=== PATIENT | female | born 1995 | race African-American/Black ===

== ENCOUNTER 2016-12-03 00:54 | Emergency (ER) | payer SELFPAY ==
[~2016-12-03] VITALS: Ht 162.6 cm; Wt 107.3 kg
[2016-12-03 00:57] VITALS: BP 135/83; PULSE 69; RESP 18; TEMP 97.8; O2SAT 100
--- NOTE | 2016-12-03 01:19 | PD ---
HPI Chief Complaint: Abdominal Pain Time Seen by Provider: 01:11 Travel History International Travel<30 days: No Contact w/Intl Traveler<30days: No Traveled to known affect area: No History of Present Illness HPI 21-year-old female here for evaluation of right lower quadrant abdominal pain. The patient reports that she has had pain in this area intermittently since she has been 18 years old. At that time she was told that she has ovarian cysts. She states that over the last couple of days the pain has worsened, described as burning/ache, worse with movement and palpation, is moderate in severity. She reports decreased appetite today. No fevers or chills. No nausea or vomiting. No abnormal vaginal discharge. She is sexually active with one partner and believes she is in a monogamous relationship. No history of abdominal surgeries. No urinary symptoms. LMP was 3 weeks ago. [facility] Social History Tobacco Use: No Allergies-Medications (Allergen,Severity, Reaction): Coded Allergies: amoxicillin (Verified Allergy, Severe, HIVES, 12/03/16) Reported Meds & Prescriptions Reported Meds & Active Scripts Active Reported Naproxen 250 Mg Tab 250 Mg PO BID PRN [ Control Pills] 1 Tab PO DAILY Review of Systems Except as stated in HPI: all other systems reviewed are Neg Physical Exam Narrative GENERAL: Well-developed, well-nourished, comfortable, no apparent distress. SKIN: Focused skin assessment warm/dry. HEAD: Atraumatic. Normocephalic. EYES: Pupils equal and round. No scleral icterus. No injection or drainage. ENT: Mucous membranes pink and moist. NECK: Trachea midline. No JVD. CARDIOVASCULAR: Regular rate and rhythm. No murmur appreciated. RESPIRATORY: No accessory muscle use. Clear to auscultation. Breath sounds equal bilaterally. GASTROINTESTINAL: Abdomen soft, nondistended. Mild right lower quadrant tenderness without peritoneal signs. Rest of abdomen is soft and nontender. Normal bowel sounds. UTILITY WORKER DRIVER: Exam performed in the presence of female nurse. Normal external genitalia. Normal cervix. Scant/physiologic vaginal discharge. No CMT. No adnexal masses or tenderness. MUSCULOSKELETAL: No obvious deformities. No clubbing. No cyanosis. No edema. NEUROLOGICAL: Awake and alert. No obvious cranial nerve deficits. Motor grossly within normal limits. Normal speech. PSYCHIATRIC: Appropriate mood and affect; insight and judgment normal. Data Data Last Documented VS Vital Signs Date Time Temp Pulse Resp B/P (MAP) Pulse Ox O2 Delivery O2 Flow Rate FiO2 12/03/16 03:30 12/03/16 03:20 58 14 100 Room Air 12/03/16 00:57 97.8 Orders Orders Complete Blood Count With Diff (12/03/16 01:15) Comprehensive Metabolic Panel (12/03/16 01:15) Urinalysis - C+S If Indicated (12/03/16 01:15) Ct Abd/Pel W Iv Contrast(Rout) (12/03/16 01:15) Iv Access Insert/Monitor (12/03/16 01:15) Ecg Monitoring (12/03/16 01:15) Oximetry (12/03/16 01:15) Ed Urine Pregnancytest Poc (12/03/16 01:15) Gc And Chlamydia Pcr (12/03/16 01:15) Wet Prep Profile (12/03/16 01:15) Iohexol 350 Inj (Omnipaque 350 Inj) (12/03/16 02:41) Ed Discharge Order (12/03/16 03:20) Labs Laboratory Tests Test 12/03/16 01:20 12/03/16 01:35 12/03/16 01:58 Urine Color DESTINEY Urine Turbidity CLEAR Urine pH 7.0 Urine Specific [place] GREATER THAN 1.035 Urine Protein TRACE mg/dL Urine Glucose (UA) NEG mg/dL Urine Ketones TRACE mg/dL Urine Occult Blood NEG Urine Nitrite NEG Urine Bilirubin NEG Urine Leukocyte Esterase NEG Urine Squamous Epithelial Cells > 8 /hpf Urine Amorphous Sediment SMALL Urine Bacteria OCC /hpf Urine Mucus MOD /lpf Microscopic Urinalysis Comment CULT NOT INDICATED White Blood Count 7.0 TH/MM3 Red Blood Count 4.39 MIL/MM3 Hemoglobin 12.0 GM/DL Hematocrit 36.5 % Mean Corpuscular Volume 83.3 FL Mean Corpuscular Hemoglobin 27.3 PG Mean Corpuscular Hemoglobin Concent 32.8 % Red Cell Distribution Width 12.8 % Platelet Count 272 TH/MM3 Mean Platelet Volume 7.6 FL Neutrophils (%) (Auto) 53.4 % Lymphocytes (%) (Auto) 37.1 % Monocytes (%) (Auto) 7.2 % Eosinophils (%) (Auto) 0.9 % Basophils (%) (Auto) 1.4 % Neutrophils # (Auto) 3.7 TH/MM3 Lymphocytes # (Auto) 2.6 TH/MM3 Monocytes # (Auto) 0.5 TH/MM3 Eosinophils # (Auto) 0.1 TH/MM3 Basophils # (Auto) 0.1 TH/MM3 CBC Comment DIFF FINAL Differential Comment Blood Urea Nitrogen 7 MG/DL Creatinine 0.75 MG/DL Random Glucose 83 MG/DL Total Protein 7.3 GM/DL Albumin 3.6 GM/DL Calcium Level 8.3 MG/DL Alkaline Phosphatase 82 U/L Aspartate Amino Transf (AST/SGOT) 28 U/L Alanine Aminotransferase (ALT/SGPT) 30 U/L Total Bilirubin 0.3 MG/DL Sodium Level 139 MEQ/L Potassium Level 4.0 MEQ/L Chloride Level 107 MEQ/L Carbon Dioxide Level 25.8 MEQ/L Anion Gap 6 MEQ/L Estimat Glomerular Filtration Rate 118 ML/MIN Clue Cells (Wet Prep) NONE SEEN Vaginal Trichomonas (Wet Prep) NONE SEEN Vaginal Yeast (Wet Prep) NONE SEEN MDM Medical Decision Making Medical Screen Exam Complete: Yes Emergency Medical Condition: Yes Differential Diagnosis Ovarian cyst, , ectopic , ovarian torsion less likely, appendicitis, UTI, cystitis, PID, TOA Narrative Course Vital signs are within normal limits. CBC is unremarkable. CMP is unremarkable. UA shows greater than 8 epithelial cells, occasional bacteria. This is likely a contaminant. Wet prep is negative for clue cells, negative for yeast, negative for Trichomonas. CT abdomen pelvis: Normal appendix. Trace pelvic free fluid likely physiologic. Patient's physical exam is not consistent with PID. She likely ruptured an ovarian cyst. She is resting comfortably and was made aware of all findings per she is stable for discharge home with outpatient follow-up. I will give her the information to [facility]. She was informed on when to return to the emergency department. She verbalizes understanding and agreement with plan. Diagnosis Primary Impression: Pelvic pain in female Referrals: [facility] 3 days Primary Care Physician 3 days Additional Instructions: Follow-up with a primary care physician this week. Follow-up with a project controller this week. Return to the emergency department for worsening symptoms or any other concerns. Disposition: DISCHARGE HOME Condition: Stable Tk Montalvo MD Dec 03, 2016 01:19
[2016-12-03 01:30] VITALS: RESP 14; O2SAT 100
[2016-12-03 01:35] VITALS: BP 130/76; PULSE 67; RESP 14; O2SAT 100
[2016-12-03] MEDS ORDERED: NAPR250T PO (01:48)
[2016-12-03] MEDS ORDERED: BIRTH CONTROL PILLS PO (01:48)
[2016-12-03 01:51] LABS: AUTOMATED NEUTROPHIL # 3.7 TH/MM3 (1.8-7.7); BASOPHIL # 0.1 TH/MM3 (0-0.2); BASOPHIL % 1.4 % (0.0-2.0); EOSINOPHIL # 0.1 TH/MM3 (0-0.4); EOSINOPHIL % 0.9 % (0.0-4.0); HEMATOCRIT 36.5 % (35.0-46.0); LYMPH % 37.1 % (9.0-44.0); LYMPHOCYTE # 2.6 TH/MM3 (1.0-4.8); MEAN CELL VOLUME 83.3 FL (80.0-100.0); MEAN CORPUSCULAR HEMOGLOBIN 27.3 PG (27.0-34.0); MEAN CORPUSCULAR HGB CONC 32.8 % (32.0-36.0); MEAN PLATELET VOLUME 7.6 FL (7.0-11.0); MONO % 7.2 % (0.0-8.0); MONOCYTE # 0.5 TH/MM3 (0-0.9); NEUT % 53.4 % (16.0-70.0); PLATELET COUNT 272 TH/MM3 (150-450); RED BLOOD COUNT 4.39 MIL/MM3 (4.00-5.30); RED CELL DISTRIBUTION WIDTH 12.8 % (11.6-17.2)
[2016-12-03 01:51] LABS: BILIRUBIN, URINE NEG (NEG); BLOOD, URINE NEG (NEG); GLUCOSE,URINE NEG (NEG); KETONE, URINE TRACE mg/dL (NEG); NITRITE,URINE NEG (NEG); URINE LEUKOCYTE ESTERASE NEG (NEG)
[2016-12-03 02:03] LABS: URINE COLOR AMBER (YELLW/STRAW)
[2016-12-03 02:04] LABS: BACTERIA, URINE OCC /hpf; MUCUS URINE MOD /lpf (OCC); SQUAMOUS EPITHELIAL CELL URINE > 8 /hpf (0-5)
[2016-12-03 02:05] LABS: CHLORIDE 107 MEQ/L (98-107); SODIUM (NA) 139 MEQ/L (136-145)
[2016-12-03 02:06] LABS: AMORPHOUS SEDIMENT, URINE SMALL
[2016-12-03 02:08] LABS: CALCIUM 8.3 MG/DL (8.5-10.1)
[2016-12-03 02:09] LABS: ALBUMIN 3.6 GM/DL (3.4-5.0); BICARBONATE 25.8 MEQ/L (21.0-32.0); BLOOD UREA NITROGEN 7 MG/DL (7-18); GLUCOSE,RANDOM 83 MG/DL (74-106)
[2016-12-03 02:11] LABS: ALT (GPT) 30 U/L (10-53)
[2016-12-03 02:12] LABS: AST (GOT) 28 U/L (15-37); CREATININE 0.75 MG/DL (0.50-1.00); GLOMERULAR FILTRATION RATE 118 ML/MIN (>89)
[2016-12-03 02:13] LABS: TOTAL BILIRUBIN ADULT 0.3 MG/DL (0.2-1.0); TOTAL PROTEIN 7.3 GM/DL (6.4-8.2)
[2016-12-03 02:15] LABS: ALKALINE PHOSPHATASE 82 U/L (45-117)
[2016-12-03] MEDS ORDERED: IOHEXOL 350 MG/ML 10 ML VIAL (for RAD DIAG) IVCONTRAST ONE (02:41)
--- NOTE | 2016-12-03 03:05 | RADRPT ---
EXAM DATE/TIME: 12/03/2016 02:16 [place] COMPARISON: No previous studies available for comparison. INDICATIONS : Right lower quadrant pain. IV CONTRAST: 75 cc Omnipaque 350 (iohexol) IV ORAL CONTRAST: No oral contrast ingested. RADIATION DOSE: 19.04 CTDIvol (mGy) MEDICAL HISTORY : None SURGICAL HISTORY : None. ENCOUNTER: Initial ACUITY: 2 days PAIN SCALE: 8/10 LOCATION: Right lower quadrant TECHNIQUE: Volumetric scanning of the abdomen and pelvis was performed. Using automated exposure control and ad justment of the mA and/or kV according to patient size, radiation dose was kept as low as reasonably achievable to obtain optimal diagnostic quality images. DICOM format image data is available electro nically for review and comparison. FINDINGS: LOWER LUNGS: The visualized lower lungs are clear. LIVER: Homogeneous density without lesion. There is no dilation of the biliary tree. No calcified gallston es. SPLEEN: Normal size without lesion. PANCREAS: Within normal limits. KIDNEYS: Normal in size and shape. There is no mass, stone or hydronephrosis. ADRENAL GLANDS: Within normal limits. VASCULAR: There is no aortic aneurysm. BOWEL/MESENTERY: The stomach, small bowel, and colon demonstrate no acute abnormality. There is no free intraperitone al air or fluid. The normal appendix. ABDOMINAL WALL: Within normal limits. RETROPERITONEUM: There is no lymphadenopathy. BLADDER: No wall thickening or mass. REPRODUCTIVE: Trace pelvic fluid fluid.. INGUINAL: There is no lymphadenopathy or hernia. MUSCULOSKELETAL: Within normal limits for patient age. CONCLUSION: 1. Normal appendix. 2. Trace pelvic free fluid likely physiologic. Holger Fang MD on December 03, 2016 at 3:01 Board Certified Radiologist. This report was verified electronically.
[2016-12-03 03:20] VITALS: BP 129/61; PULSE 58; RESP 14; O2SAT 100
== END 2016-12-03 03:37 | disposition home or self-care (01) ==
LOC: PHED 00:54
DX: R10.2 Pelvic and perineal pain (principal)
CPT/HCPCS: 74177; 80053; 81001; 84703; 85025; 87210; 87491; 87591; 99285; Q9967

== ENCOUNTER 2017-06-03 12:23 | Emergency (ER) | payer BC, MEDICAID ==
[~2017-06-03] VITALS: Ht 162.6 cm; Wt 112.0 kg
[~2017-06-03 12:23] MED LIST: BIRTH CONTROL PILLS PO; NAPR250T4 PO
[2017-06-03 12:42] VITALS: BP 124/67; PULSE 75; RESP 16; TEMP 98.7; O2SAT 100
--- NOTE | 2017-06-03 13:54 | PD ---
HPI Chief Complaint: Retail Planner Problem/Complaint Time Seen by Provider: 13:03 Travel History International Travel<30 days: No Contact w/Intl Traveler<30days: No Traveled to known affect area: No History of Present Illness HPI This is a 21 year old female who presents to the emergency department with vaginal swelling, constant, moderate, increasing over the past 2 days with no associated vaginal discharge, fevers, chills or abdominal pain. She's had one sexual partner in the past 6 months. PFSH Past Medical History Asthma: Yes (DOES NOT REQUIRE MEDICATION) Immunizations Current: Yes ?: Not LMP: 2 WEEK AGO : 0 Ovarian Cysts: Yes Past Surgical History Tonsillectomy: Yes (AND ADNOIDS) Social History Alcohol Use: Yes (OCC) Tobacco Use: No Substance Use: No Allergies-Medications (Allergen,Severity, Reaction): Coded Allergies: amoxicillin (Verified Allergy, Severe, HIVES, 06/03/17) Reported Meds & Prescriptions Reported Meds & Active Scripts Active Reported Naproxen 250 Mg Tab 250 Mg PO BID PRN Review of Systems Except as stated in HPI: all other systems reviewed are Neg Physical Exam Narrative GENERAL: Well-nourished, well-developed patient. SKIN: Warm and dry. HEAD: Normocephalic. EYES: No scleral icterus. No injection or drainage. NECK: Supple, trachea midline. CARDIOVASCULAR: Regular rate and rhythm without murmurs. RESPIRATORY: Breath sounds equal bilaterally. No accessory muscle use. GASTROINTESTINAL: Abdomen soft, non-tender, nondistended. : White vaginal discharge in the vault with a fishy odor, no cervical motion tenderness or adnexal tenderness. MUSCULOSKELETAL: No cyanosis, or edema. Data Data Last Documented VS Vital Signs Date Time Temp Pulse Resp B/P (MAP) Pulse Ox O2 Delivery O2 Flow Rate FiO2 06/03/17 12:42 98.7 75 16 124/67 (86) 100 Orders Orders Wet Prep Profile (06/03/17 13:16) Gc And Chlamydia Pcr (06/03/17 13:16) Labs Laboratory Tests Test 06/03/17 13:20 Clue Cells (Wet Prep) NONE SEEN Vaginal Trichomonas (Wet Prep) NONE SEEN Vaginal Yeast (Wet Prep) NONE SEEN MDM Medical Decision Making Medical Screen Exam Complete: Yes Emergency Medical Condition: Yes Differential Diagnosis Cervicitis, yeast infection, bacterial vaginosis, pelvic inflammatory disease Narrative Course This is a 21-year-old female who presents to the emergency department with vaginal swelling and irritation. On exam she has an exam consistent with possible bacterial vaginosis. Wet prep was negative. Given my clinical suspicion I'm inclined to treat her with Flagyl. I also provided her with empiric treatment for cervicitis and the case that this is an STD. Otherwise patient is nontoxic appearing and has no signs of pelvic inflammatory disease. I think she can be discharged home Diagnosis Primary Impression: Vaginal irritation Patient Instructions: General Instructions Med/Other Pt SpecificInfo: Prescription(s) given Scripts Metronidazole (Flagyl) 500 Mg Tab 500 MG PO BID for Infection for 7 Days, #14 TAB 0 Refills Prov: Rayne Galeano MD 06/03/17 Disposition: 01 DISCHARGE HOME Condition: Stable Rayne Galeano MD Jun 03, 2017 13:54
[2017-06-03] MEDS ORDERED: METR-1 PO (14:25)
[2017-06-03] MEDS ORDERED: AZITHROMYCIN PWD FOR SUSP 1 GM PACKET PO ONE (14:30)
[2017-06-03] MEDS ORDERED: LIDOCAINE HCL 1% 50 ML VIAL IM ONE (14:30)
[2017-06-03] MEDS ORDERED: cefTRIAXone 250 MG VIAL IM ONE (14:30)
[2017-06-03] MEDS ORDERED: LIDOCAINE HCL 1% PF 30 ML VIAL ONE (14:41)
== END 2017-06-03 15:15 | disposition home or self-care (01) ==
LOC: PHED 12:23
DX: N89.8 Other specified noninflammatory disorders of vagina (principal)
CPT/HCPCS: 87210; 87491; 87591; 96372; 99283; J0696

== ENCOUNTER 2017-06-19 18:09 | Emergency (ER) | payer BC ==
[~2017-06-19] VITALS: Ht 162.6 cm; Wt 109.3 kg
[~2017-06-19 18:09] MED LIST changes: -BIRTH CONTROL PILLS PO; +METR-1 PO
[2017-06-19 18:18] VITALS: BP 146/70; PULSE 85; RESP 18; TEMP 98.9; O2SAT 100
--- NOTE | 2017-06-19 19:50 | PD ---
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 She complains of discharge and vaginal area irritation. She denies any fevers or other symptoms. She states it feels the same as last time. Modifying Factors: None Associated Signs & Symptoms: Vaginal area irritation and discharge Risk Factors: Recent bacterial vaginosis, unprotected sex PFSH Past Medical History Asthma: Yes (DOES NOT REQUIRE MEDICATION) Immunizations Current: Yes ?: Not : 0 Ovarian Cysts: Yes Past Surgical History Tonsillectomy: Yes (AND ADNOIDS) Social History Alcohol Use: Yes (OCC) Tobacco Use: No Substance Use: No Allergies-Medications (Allergen,Severity, Reaction): Coded Allergies: amoxicillin (Verified Allergy, Severe, HIVES, 06/19/17) Reported Meds & Prescriptions Reported Meds & Active Scripts Active Flagyl (Metronidazole) 500 Mg Tab 500 Mg PO BID 7 Days Reported Naproxen 250 Mg Tab 250 Mg PO BID PRN Review of Systems Except as stated in HPI: all other systems reviewed are Neg Physical Exam Narrative GENERAL: Well-developed young -[place] female patient currently in mild distress. Awake and oriented 3. SKIN: Focused skin assessment warm/dry. HEAD: Atraumatic. Normocephalic. EYES: Pupils equal and round. No scleral icterus. No injection or drainage. ENT: No nasal bleeding or discharge. Mucous membranes pink and moist. NECK: Trachea midline. No JVD. CARDIOVASCULAR: Regular rate and rhythm. No murmur appreciated. RESPIRATORY: No accessory muscle use. Clear to auscultation. Breath sounds equal bilaterally. GASTROINTESTINAL: Abdomen soft, non-tender, nondistended. Hepatic and splenic margins not palpable. GENITOURINARY: Normal external genitalia without lesions or erythema. Vaginal vault without blood or drainage. Cervical os was closed without drainage. No cervical motion tenderness. Uterus nontender and nonenlarged. Bilateral adnexa nontender without masses. MUSCULOSKELETAL: No obvious deformities. No clubbing. No cyanosis. No edema. NEUROLOGICAL: Awake and alert. No obvious cranial nerve deficits. Motor grossly within normal limits. Normal speech. PSYCHIATRIC: Appropriate mood and affect; insight and judgment normal. Data Data Last Documented VS Vital Signs Date Time Temp Pulse Resp B/P (MAP) Pulse Ox O2 Delivery O2 Flow Rate FiO2 06/19/17 18:18 98.9 85 18 146/70 (95) 100 Orders Orders Urinalysis - C+S If Indicated (06/19/17:23) Ed Urine Pregnancytest Poc (06/19/17:23) Gc And Chlamydia Pcr (06/19/17 20:04) Wet Prep Profile (06/19/17 20:) Labs Laboratory Tests Test 06/19/17 20:02 06/19/17 20:04 Urine Color YELLOW Urine Turbidity [place] CLOUDY Urine pH 6.0 Urine Specific [place] GREATER/EQUAL 1.030 Urine Protein TRACE mg/dL Urine Glucose (UA) NEG mg/dL Urine Ketones TRACE mg/dL Urine Occult Blood NEG Urine Nitrite NEG Urine Bilirubin NEG Urine Urobilinogen 0.2 MG/DL Urine Leukocyte Esterase TRACE Urine RBC 0-3 /hpf Urine WBC 6-8 /hpf Urine Squamous Epithelial Cells > 8 /hpf Urine Bacteria FEW /hpf Microscopic Urinalysis Comment CULT NOT INDICATED Clue Cells (Wet Prep) NONE SEEN Vaginal Trichomonas (Wet Prep) NONE SEEN Vaginal Yeast (Wet Prep) NONE SEEN MDM Medical Decision Making Medical Screen Exam Complete: Yes Emergency Medical Condition: Yes Medical Record Reviewed: Yes Interpretation(s) Laboratory Tests Test 06/19/17 20:02 06/19/17 20:04 Urine Ketones TRACE mg/dL (NEG) Urine Leukocyte Esterase TRACE (NEG) Urine WBC 6-8 /hpf (0-5) Urine Squamous Epithelial Cells > 8 /hpf (0-5) Urine Bacteria FEW /hpf (NONE) Differential Diagnosis Bacterial vaginosis versus cervicitis versus candidal vaginitis Narrative Course Pelvic exam was fairly unremarkable. Wet prep is negative. UA did show some UTI. Considering her symptoms are similar to the last time, my plan would be to treat her UTI as well as BV. Her GC cultures have been negative in the past and I suspect will be negative this time. My plan would be to release her at this point with follow-up to [employer] if symptoms do not resolve. Return for any worsening in symptoms as necessary. She is not . The plan was discussed with her and she states understanding. Diagnosis Primary Impression: UTI (urinary tract infection) Additional Impression: Vaginitis Med/Other Pt SpecificInfo: Prescription(s) given Scripts Metronidazole (Flagyl) 500 Mg Tab 500 MG PO TID for Infection for 7 Days, TAB 0 Refills Prov: Geni Phillips MD 06/19/17 Ciprofloxacin (Cipro) 500 Mg Tab 500 MG PO BID for Infection for 3 Days, #6 TAB 0 Refills Prov: Geni Phillips MD 06/19/17 Disposition: 01 DISCHARGE HOME Condition: Stable Geni Phillips MD June 19, 2017 19:50
[2017-06-19 20:09] LABS: BILIRUBIN, URINE NEG (NEG); BLOOD, URINE NEG (NEG); GLUCOSE,URINE NEG (NEG); KETONE, URINE TRACE mg/dL (NEG); NITRITE,URINE NEG (NEG); URINE COLOR YELLOW (YELLW/STRAW); URINE LEUKOCYTE ESTERASE TRACE (NEG)
[2017-06-19 20:14] LABS: BACTERIA, URINE FEW /hpf; RBC, URINE 0-3 /hpf (0-3); SQUAMOUS EPITHELIAL CELL URINE > 8 /hpf (0-5)
[2017-06-19] MEDS ORDERED: METR-1 PO (21:07)
[2017-06-19] MEDS ORDERED: CIPR-9 PO (21:07)
[2017-06-19 22:11] VITALS: BP 138/75; TEMP 98.8
== END 2017-06-19 22:12 | disposition home or self-care (01) ==
LOC: PHED 18:09
DX: N39.0 Urinary tract infection, site not specified (principal); N76.0 Acute vaginitis; J45.909 Unspecified asthma, uncomplicated; Z88.0 Allergy status to penicillin; Z79.899 Other long term (current) drug therapy
CPT/HCPCS: 81001; 84703; 87210; 87491; 87591; 99284

== ENCOUNTER 2017-07-02 19:58 | Observation (INO) | payer BC ==
[~2017-07-02] VITALS: Ht 162.6 cm; Wt 111.0 kg
[~2017-07-02 19:58] MED LIST changes: +CIPR-9 PO
[2017-07-02 20:04] VITALS: BP 119/62; PULSE 123; RESP 18; TEMP 99; O2SAT 97
[2017-07-02] MEDS ORDERED: SODIUM CHLOR 0.9% 1000 ML INJ 1,000 ML IV SCH (20:25)
--- NOTE | 2017-07-02 20:28 | PD ---
HPI Chief Complaint: Abdominal Pain Time Seen by Provider: 20:21 Travel History International Travel<30 days: No Contact w/Intl Traveler<30days: No Traveled to known affect area: No History of Present Illness HPI 21-year-old female here for evaluation of multiple complaints. The patient reports diarrhea, nausea, abdominal pain/cramping, headaches, generalized malaise, generalized weakness. Symptoms started yesterday. She denies fevers or chills. She states that she feels nauseous but has not vomited. She was seen in the emergency department 2 weeks ago and was diagnosed with a UTI which was treated with Cipro and the patient was also given Flagyl for BV type symptoms. No history of abdominal surgeries. She does have history of right ovarian cyst. Abdominal pain is lower, left greater than right, cramping, moderate, worse with movements. Patient reports that her urinary symptoms have improved and she no longer has vaginal discharge since her visit on 06/19/17. PFSH Past Medical History Asthma: Yes (DOES NOT REQUIRE MEDICATION) Immunizations Current: Yes ?: Not LMP: 06/19/17 : 0 Ovarian Cysts: Yes Past Surgical History Tonsillectomy: Yes (AND ADNOIDS) Social History Alcohol Use: Yes (OCC) Tobacco Use: No Substance Use: No Allergies-Medications (Allergen,Severity, Reaction): Coded Allergies: amoxicillin (Verified Allergy, Severe, HIVES, 07/02/17) Reported Meds & Prescriptions Reported Meds & Active Scripts Active Flagyl (Metronidazole) 500 Mg Tab 500 Mg PO TID 7 Days Reported Naproxen 250 Mg Tab 250 Mg PO BID PRN Review of Systems Except as stated in HPI: all other systems reviewed are Neg Physical Exam Narrative GENERAL: Well-developed, well-nourished, overweight, comfortable, no apparent distress. SKIN: Focused skin assessment warm/dry. HEAD: Atraumatic. Normocephalic. EYES: Pupils equal and round. No scleral icterus. No injection or drainage. ENT: Mucous membranes pink and moist. NECK: Trachea midline. No JVD. CARDIOVASCULAR: Regular rate and rhythm. No murmur appreciated. RESPIRATORY: No accessory muscle use. Clear to auscultation. Breath sounds equal bilaterally. GASTROINTESTINAL: Abdomen soft, non-tender, nondistended. FILER FINISH: Exam performed in the presence of a female nurse. Normal external genitalia. Scant blood in the vaginal vault coming from the cervical office. No intravaginal lacerations. No foul-smelling vaginal discharge. MUSCULOSKELETAL: No obvious deformities. No clubbing. No cyanosis. No edema. NEUROLOGICAL: Awake and alert. No obvious cranial nerve deficits. Motor grossly within normal limits. Normal speech. PSYCHIATRIC: Appropriate mood and affect; insight and judgment normal. Data Data Last Documented VS Vital Signs Date Time Temp Pulse Resp B/P (MAP) Pulse Ox O2 Delivery O2 Flow Rate FiO2 07/02/17 21:53 106 20 136/66 (89) 100 07/02/17 20:04 99.0 Orders Orders Complete Blood Count With Diff (07/02/17 20:25) Comprehensive Metabolic Panel (07/02/17 20:25) Urinalysis - C+S If Indicated (07/02/17 20:25) Iv Access Insert/Monitor (07/02/17 20:25) Ecg Monitoring (07/02/17 20:25) Oximetry (07/02/17 20:25) Sodium Chlor 0.9% 1000 Ml Inj (Ns 1000 M (07/02/17 20:25) Sodium Chloride 0.9% Flush (Ns Flush) (07/02/17 20:30) Ed Urine Pregnancytest Poc (07/02/17 20:25) Influenzae A/B Antigen (07/02/17 20:25) Ondansetron Odt (Zofran Odt) (07/02/17 20:30) Ct Abd/Pel W Iv Contrast(Rout) (07/02/17 21:20) Gc And Chlamydia Pcr (07/02/17 21:20) Wet Prep Profile (07/02/17 21:20) Sodium Chlor 0.9% 1000 Ml Inj (Ns 1000 M (07/02/17 22:45) Acetaminophen (Tylenol) (07/02/17 22:45) Labs Laboratory Tests Test 07/02/17 20:20 07/02/17 21:00 07/02/17 22:25 White Blood Count 10.0 TH/MM3 Red Blood Count 4.76 MIL/MM3 Hemoglobin 12.9 GM/DL Hematocrit 39.8 % Mean Corpuscular Volume 83.8 FL Mean Corpuscular Hemoglobin 27.1 PG Mean Corpuscular Hemoglobin Concent 32.3 % Red Cell Distribution Width 13.5 % Platelet Count 251 TH/MM3 Mean Platelet Volume 7.7 FL Neutrophils (%) (Auto) 86.4 % Lymphocytes (%) (Auto) 8.4 % Monocytes (%) (Auto) 3.9 % Eosinophils (%) (Auto) 0.0 % Basophils (%) (Auto) 1.3 % Neutrophils # (Auto) 8.7 TH/MM3 Lymphocytes # (Auto) 0.8 TH/MM3 Monocytes # (Auto) 0.4 TH/MM3 Eosinophils # (Auto) 0.0 TH/MM3 Basophils # (Auto) 0.1 TH/MM3 CBC Comment DIFF FINAL Differential Comment Blood Urea Nitrogen 6 MG/DL Creatinine 0.78 MG/DL Random Glucose 111 MG/DL Total Protein 7.7 GM/DL Albumin 3.5 GM/DL Calcium Level 8.5 MG/DL Alkaline Phosphatase 81 U/L Aspartate Amino Transf (AST/SGOT) 62 U/L Alanine Aminotransferase (ALT/SGPT) 65 U/L Total Bilirubin 0.4 MG/DL Sodium Level 136 MEQ/L Potassium Level 4.2 MEQ/L Chloride Level 107 MEQ/L Carbon Dioxide Level 22.4 MEQ/L Anion Gap 7 MEQ/L Estimat Glomerular Filtration Rate 113 ML/MIN Urine Color YELLOW Urine Turbidity CLEAR Urine pH 5.5 Urine Specific [place] 1.025 Urine Protein NEG mg/dL Urine Glucose (UA) NEG mg/dL Urine Ketones TRACE mg/dL Urine Occult Blood NEG Urine Nitrite NEG Urine Bilirubin NEG Urine Urobilinogen 0.2 MG/DL Urine Leukocyte Esterase NEG Urine RBC 0-3 /hpf Urine WBC 3-5 /hpf Urine Squamous Epithelial Cells > 8 /hpf Urine Uric Acid Crystals . /hpf Urine Tyrosine Crystals . /hpf Urine Bacteria RARE /hpf Urine Mucus MANY /lpf Microscopic Urinalysis Comment CULT NOT INDICATED Clue Cells (Wet Prep) NONE SEEN Vaginal Trichomonas (Wet Prep) NONE SEEN Vaginal Yeast (Wet Prep) NONE SEEN MDM Medical Decision Making Medical Screen Exam Complete: Yes Emergency Medical Condition: Yes Differential Diagnosis Flulike illness, metabolic abnormality, dehydration, UTI, , acute intra -abdominal/surgical process less likely Narrative Course Initial vital signs show heart rate 123, blood pressure 118/62, pulse ox 97% on room air, oral temperature 99F. CBC: WBC 10, hemoglobin 12.9, hematocrit 39.8, platelets 251, neutrophils 86.4%. CMP is remarkable for AST 62, ALT 65, otherwise unremarkable. UA shows trace ketones, greater than 8 epithelial cells, rare bacteria, many mucus, not suggestive of UTI. Wet prep is negative. CT abdomen pelvis: CONCLUSION: 1. The appendix has some borderline features on this CT exam without definitive evidence for appendicitis. There is air noted throughout the appendix lumen and there is no significant periappendiceal inflammatory change. Follow-up examination may be performed if there is significant ongoing clinical concern for appendicitis. 2. Prominent endometrium likely due to patient's phase of menstrual cycle. 3. Otherwise, no definite acute findings in the abdomen or pelvis. Case discussed with on-call general surgeon Dr. Michaud. There are no peritoneal signs on the patient's abdominal exam. She has mild tenderness in the bilateral lower quadrants as well as suprapubically. There is scant blood in the vaginal vault coming from the cervical office, and the patient appears to be beginning her menstrual period. Plan at this time is to hold antibiotics , admit to the medicine service for overnight observation for general surgery consultation and evaluation in the morning. Case discussed with hospitalist Dr. Rice who will admit the patient to the hospitalist service. The patient was made aware of all findings and plan for admission. Diagnosis Primary Impression: Abdominal pain Qualified Codes: R10.30 - Lower abdominal pain, unspecified Additional Impression: R/O Appendicitis Admitting Information Admitting Physician Requests: Observation Tk Montalvo MD July 02, 2017 20:28
[2017-07-02] MEDS ORDERED: SODIUM CHLORIDE 0.9% FLUSH 10 ML FLUSH IV FLUSH PRN ×2 (20:30→23:00)
[2017-07-02] MEDS ORDERED: ONDANSETRON ODT 4 MG TAB PO ONE (20:30)
[2017-07-02 20:40] LABS: AUTOMATED NEUTROPHIL # 8.7 TH/MM3 (1.8-7.7); BASOPHIL # 0.1 TH/MM3 (0-0.2); BASOPHIL % 1.3 % (0.0-2.0); HEMATOCRIT 39.8 % (35.0-46.0); HEMOGLOBIN 12.9 GM/DL (11.6-15.3); LYMPH % 8.4 % (9.0-44.0); LYMPHOCYTE # 0.8 TH/MM3 (1.0-4.8); MEAN CELL VOLUME 83.8 FL (80.0-100.0); MEAN CORPUSCULAR HEMOGLOBIN 27.1 PG (27.0-34.0); MEAN CORPUSCULAR HGB CONC 32.3 % (32.0-36.0); MEAN PLATELET VOLUME 7.7 FL (7.0-11.0); MONO % 3.9 % (0.0-8.0); MONOCYTE # 0.4 TH/MM3 (0-0.9); NEUT % 86.4 % (16.0-70.0); PLATELET COUNT 251 TH/MM3 (150-450); RED BLOOD COUNT 4.76 MIL/MM3 (4.00-5.30); RED CELL DISTRIBUTION WIDTH 13.5 % (11.6-17.2)
[2017-07-02 20:45] LABS: CHLORIDE 107 MEQ/L (98-107); SODIUM (NA) 136 MEQ/L (136-145)
[2017-07-02 20:48] LABS: CALCIUM 8.5 MG/DL (8.5-10.1)
[2017-07-02 20:49] LABS: ALBUMIN 3.5 GM/DL (3.4-5.0); BICARBONATE 22.4 MEQ/L (21.0-32.0); BLOOD UREA NITROGEN 6 MG/DL (7-18); GLUCOSE,RANDOM 111 MG/DL (74-106)
[2017-07-02 20:52] LABS: ALT (GPT) 65 U/L (10-53); AST (GOT) 62 U/L (15-37); CREATININE 0.78 MG/DL (0.50-1.00); GLOMERULAR FILTRATION RATE 113 ML/MIN (>89)
[2017-07-02 20:54] LABS: TOTAL BILIRUBIN ADULT 0.4 MG/DL (0.2-1.0); TOTAL PROTEIN 7.7 GM/DL (6.4-8.2)
[2017-07-02 20:55] LABS: ALKALINE PHOSPHATASE 81 U/L (45-117)
[2017-07-02 21:02] LABS: BILIRUBIN, URINE NEG (NEG); BLOOD, URINE NEG (NEG); GLUCOSE,URINE NEG (NEG); KETONE, URINE TRACE mg/dL (NEG); NITRITE,URINE NEG (NEG); PH, URINE 5.5 (5.0-8.5); URINE COLOR YELLOW (YELLW/STRAW); URINE LEUKOCYTE ESTERASE NEG (NEG)
[2017-07-02 21:11] LABS: MUCUS URINE MANY /lpf (OCC)
[2017-07-02 21:12] LABS: BACTERIA, URINE RARE /hpf; RBC, URINE 0-3 /hpf (0-3); SQUAMOUS EPITHELIAL CELL URINE > 8 /hpf (0-5)
[2017-07-02 21:53] VITALS: BP 136/66; PULSE 106; RESP 20; O2SAT 100
--- NOTE | 2017-07-02 22:24 | RADRPT ---
EXAM DATE: 07/02/2017 10:13 PM EDT AGE/SEX: 21 years / Female INDICATIONS: Right sided abdomen pain with nausea. CLINICAL DATA: This is the patient's initial encounter. Patient reports that signs and symptoms have been present for 1 day and indicates a pain score of 7/10. MEDICAL/SURGICAL HISTORY: None. None. ORAL CONTRAST: No oral contrast ingested. RADIATION DOSE: 19.91 CTDI (mGy) COMPARISON: [facility], CT ABDOMEN & PELVIS W CONTRAST, 12/03/2016. . TECHNIQUE: Multiple contiguous axial images were obtained through the abdomen and pelvis following b olus infusion of 100 ml Omnipaque 350 (iohexol) nonionic water-soluble contrast as a single exam do se. No oral contrast ingested. Using automated exposure control and adjustment of the mA and/or kV a ccording to patient size, the radiation dose was kept as low as reasonably achievable to obtain optim al diagnostic quality images. FINDINGS: LOWER LUNGS: The visualized lower lungs are clear. LIVER: Ill-defined hypodensity adjacent to the falciform ligament likely reflecting focal fat and un changed from prior exam. No radiopaque gallstones. SPLEEN: Homogeneous density without enlargement. PANCREAS: Unremarkable without mass or calcification. KIDNEYS: Kidneys demonstrate symmetrical enhancement and are symmetrical in size without evidence fo r radiopaque renal calculi or hydronephrosis. ADRENAL GLANDS: Unremarkable. AORTA: Peace-aneurysmal. BOWEL/MESENTERY: The bowel loops are grossly unremarkable. Appendix is visualized. It appears slight ly more prominent than previous examination although contains air throughout its lumen without signif icant inflammatory stranding. It is marginal in size measuring up to 8 mm. No dilated loops of bowel. ABDOMINAL WALL: Intact. RETROPERITONEUM: No evidence of adenopathy in the retrocrural, para-aortic, or deep pelvic regions. BLADDER: Contours are smooth. REPRODUCTIVE: Prominent endometrium BONY STRUCTURES: Unremarkable. CONCLUSION: 1. The appendix has some borderline features on this CT exam without definitive evidence for appendi citis. There is air noted throughout the appendix lumen and there is no significant periappendiceal i nflammatory change. Follow-up examination may be performed if there is significant ongoing clinical c oncern for appendicitis. 2. Prominent endometrium likely due to patient's phase of menstrual cycle. 3. Otherwise, no definite acute findings in the abdomen or pelvis. Electronically signed by: Elie Stewart MD 07/02/2017 10:23 PM EDT
[2017-07-02] MEDS ORDERED: SODIUM CHLOR 0.9% 1000 ML INJ 1,000 ML IV ONE (22:45)
[2017-07-02] MEDS ORDERED: ACETAMINOPHEN 325 MG TAB PO ONE (22:45)
[2017-07-02] MEDS ORDERED: IOHEXOL 350 MG/ML 10 ML VIAL (for RAD DIAG) IVCONTRAST ONE (22:52)
[2017-07-02] MEDS ORDERED: MAGNESIUM HYDROXIDE SUSP 30 ML CUP PO PRN (23:00)
[2017-07-02] MEDS ORDERED: SENNOSIDES 8.6 MG TAB PO PRN (23:00)
[2017-07-02] MEDS ORDERED: BISACODYL 10 MG SUPP RECTAL PRN (23:00)
[2017-07-02] MEDS ORDERED: NALOXONE HCL 0.4 MG/ML AMP IV PUSH PRN (23:00)
[2017-07-02] MEDS ORDERED: LACTULOSE SYRUP 20 GM/30 ML CUP PO PRN (23:00)
[2017-07-03 00:38] VITALS: BP 140/67; TEMP 98.2
[2017-07-03 00:47] VITALS: BP 121/73; PULSE 93; RESP 22; TEMP 98; O2SAT 100
[2017-07-03 07:00] VITALS: BP 126/73; PULSE 98; RESP 18; TEMP 99.9; O2SAT 97
[2017-07-03] MEDS ORDERED: SODIUM CHLORIDE 0.9% FLUSH 10 ML FLUSH IV FLUSH SCH (09:00)
[2017-07-03] MEDS: ACETAMINOPHEN 325 MG TAB PO PRN ×2 (09:07→14:11)
[2017-07-03 09:08] LABS: AUTOMATED NEUTROPHIL # 5.5 TH/MM3 (1.8-7.7); BASOPHIL % 0.1 % (0.0-2.0); EOSINOPHIL % 0.1 % (0.0-4.0); HEMATOCRIT 38.1 % (35.0-46.0); HEMOGLOBIN 12.7 GM/DL (11.6-15.3); LYMPH % 10.3 % (9.0-44.0); LYMPHOCYTE # 0.7 TH/MM3 (1.0-4.8); MEAN CORPUSCULAR HGB CONC 33.3 % (32.0-36.0); MEAN PLATELET VOLUME 7.8 FL (7.0-11.0); MONO % 9.2 % (0.0-8.0); MONOCYTE # 0.6 TH/MM3 (0-0.9); NEUT % 80.3 % (16.0-70.0); PLATELET COUNT 245 TH/MM3 (150-450); RED BLOOD COUNT 4.53 MIL/MM3 (4.00-5.30); RED CELL DISTRIBUTION WIDTH 13.8 % (11.6-17.2); WHITE BLOOD COUNT 6.8 TH/MM3 (4.0-11.0)
--- NOTE | 2017-07-03 09:08 | PD.CONS ---
cc: Chino Michaud MD HPI Service General Surgery Consult Requested By Dr. Rice Reason for Consult Rule out appendicitis Primary Care Physician No Primary Care Physician History of Present Illness This is a 21 year old female who came to the ED yesterday with complaints of generalized abdominal pain and pelvis pain, nausea, lower back pain, chills and subjective fevers. The patient states that the symptoms began on Friday but her abdominal pain increased to a 10 out of 10 upon waking up on Friday. The patient has had a similar episode a few years ago and it was thought she had appendicitis but she was found to have an ovarian cysts. She denies . A CT abdomen/pelvis was obtained which does show some air in the appendix as well as some mild inflammation. She does have a normal WBC. A pelvic exam was done in the ED. A General Surgery consultation has been requested for evaluation of possible appendicitis. Review of Systems Constitutional: COMPLAINS OF: Fever, Chills, DENIES: Fatigue Endocrine: DENIES: Polydipsia, Polyuria, Polyphagia Eyes: DENIES: Diplopia, Eye inflammation Respiratory: DENIES: Cough, Sputum production Cardiovascular: DENIES: Chest pain Gastrointestinal: COMPLAINS OF: Abdominal pain, Diarrhea, Nausea, Vomiting Genitourinary: COMPLAINS OF: Dysmenorrhea, DENIES: Urinary frequency, Urinary incontinence Musculoskeletal: DENIES: Joint pain Integumentary: DENIES: Abnormal pigmentation Hematologic/lymphatic: DENIES: Bruising Immunologic/allergic: DENIES: Eczema Neurologic: DENIES: Headache, Localized weakness, Paresthesias Psychiatric: DENIES: Mood changes, Depression, Hallucinations Past Family Social History Past Medical History RIGHT ovarian cyst Past Surgical History Tonsillectomy Reported Medications None Allergies: Coded Allergies: amoxicillin (Verified Allergy, Severe, HIVES, 07/02/17) Active Ordered Medications Current Medications Medications (Trade) Dose Ordered Sig/Leland Route Start Time Stop Time Status Last Admin (NS Flush) 2 ml UNSCH PRN IV FLUSH 07/02/17 23:00 (NS Flush) 2 ml BID IV FLUSH 07/03/17 09:00 (Tylenol) 650 mg Q4H PRN PO 07/02/17 23:00 (Narcan Inj) 0.4 mg UNSCH PRN IV PUSH 07/02/17 23:00 (Milk Of Magnesia Liq) 30 ml Q12H PRN PO 07/02/17 23:00 (Senokot) 17.2 mg Q12H PRN PO 07/02/17 23:00 (Dulcolax Supp) 10 mg DAILY PRN RECTAL 07/02/17 23:00 (Lactulose Liq) 30 ml DAILY PRN PO 07/02/17 23:00 Family History Non contributory Social History Denies tobacco use Occasional ETOH use Student at [employer] Physical Exam Vital Signs Vital Signs Date Time Temp Pulse Resp B/P (MAP) Pulse Ox O2 Delivery O2 Flow Rate FiO2 07/03/17 07:00 99.9 98 18 126/73 (90) 97 07/03/17 00:47 98.0 93 22 121/73 (89) 100 07/03/17 00:38 98.2 90 20 140/67 (91) 98 07/02/17 21:53 106 20 136/66 (89) 100 07/02/17 21:42 20 07/02/17 20:04 99.0 123 18 119/62 (81) 97 Physical Exam GENERAL: Pleasant 21 year old female resting in bed in no acute distress. SKIN: Warm and dry. HEAD: Atraumatic. Normocephalic. EYES: Pupils equal and round. No scleral icterus. No injection or drainage. ENT: No nasal bleeding or discharge. Mucous membranes pink and moist. NECK: Trachea midline. CARDIOVASCULAR: Regular rate and rhythm. RESPIRATORY: No accessory muscle use. Clear to auscultation. Breath sounds equal bilaterally. GASTROINTESTINAL: Abdomen soft, nondistended; obese; abdominal pain throughout with palpation greatest in the RIGHT lower quadrant; no visible scars of hernias. MUSCULOSKELETAL: Extremities without clubbing, cyanosis, or edema. No obvious deformities. NEUROLOGICAL: Awake and alert. No obvious cranial nerve deficits. Motor grossly within normal limits. Five out of 5 muscle strength in the arms and legs. Normal speech. PSYCHIATRIC: Appropriate mood and affect; insight and judgment normal. Laboratory Laboratory Tests Test 07/02/17 20:20 07/02/17 21:00 07/02/17 22:25 07/03/17 08:50 White Blood Count 10.0 Red Blood Count 4.76 Hemoglobin 12.9 Hematocrit 39.8 Mean Corpuscular Volume 83.8 Mean Corpuscular Hemoglobin 27.1 Mean Corpuscular Hemoglobin Concent 32.3 Red Cell Distribution Width 13.5 Platelet Count 251 Mean Platelet Volume 7.7 Neutrophils (%) (Auto) 86.4 Lymphocytes (%) (Auto) 8.4 Monocytes (%) (Auto) 3.9 Eosinophils (%) (Auto) 0.0 Basophils (%) (Auto) 1.3 Neutrophils # (Auto) 8.7 Lymphocytes # (Auto) 0.8 Monocytes # (Auto) 0.4 Eosinophils # (Auto) 0.0 Basophils # (Auto) 0.1 CBC Comment DIFF FINAL Differential Comment Blood Urea Nitrogen 6 Creatinine 0.78 Random Glucose 111 Total Protein 7.7 Albumin 3.5 Calcium Level 8.5 Alkaline Phosphatase 81 Aspartate Amino Transf (AST/SGOT) 62 Alanine Aminotransferase (ALT/SGPT) 65 Total Bilirubin 0.4 Sodium Level 136 Potassium Level 4.2 Chloride Level 107 Carbon Dioxide Level 22.4 Anion Gap 7 Estimat Glomerular Filtration Rate 113 Urine Color YELLOW Urine Turbidity CLEAR Urine pH 5.5 Urine Specific [place] 1.025 Urine Protein NEG Urine Glucose (UA) NEG Urine Ketones TRACE Urine Occult Blood NEG Urine Nitrite NEG Urine Bilirubin NEG Urine Urobilinogen 0.2 Urine Leukocyte Esterase NEG Urine RBC 0-3 Urine WBC 3-5 Urine Squamous Epithelial Cells > 8 Urine Uric Acid Crystals . Urine Tyrosine Crystals . Urine Bacteria RARE Urine Mucus MANY Microscopic Urinalysis Comment CULT NOT INDICATED Clue Cells (Wet Prep) NONE SEEN Vaginal Trichomonas (Wet Prep) NONE SEEN Vaginal Yeast (Wet Prep) NONE SEEN Chlamydia trachomatis DNA (PCR) NOT DETECTED Neisseria gonorrhoeae DNA (PCR) NOT DETECTED Date/Time Source Procedure Growth Status 07/02/17 20:20 Nasal Washing Influenza Types A,B Antigen (AMILCAR) - Final NEGATIVE FOR FLU A AND B ANTIGEN.... Complete Imaging Last 48 hours Impressions Abdomen/Pelvis CT 07/02/172119 Signed Impressions: CONCLUSION: 1. The appendix has some borderline features on this CT exam without definitiv e evidence for appendicitis. There is air noted throughout the appendix lumen a nd there is no significant periappendiceal inflammatory change. Follow-up exami nation may be performed if there is significant ongoing clinical concern for ap pendicitis. 2. Prominent endometrium likely due to patient's phase of menstrual cycle. 3. Otherwise, no definite acute findings in the abdomen or pelvis. Assessment and Plan Assessment and Plan 21 year old female with abdominal pain; nausea; vomiting; rule out appendicitis -Normal WBC--- recheck again this morning -CT findings not totally consistent with appendicitis -Exam also not consistent with appendicitis -If WBC normal would suggest GREENHOUSE GROWER consult -If pain persists without GREENHOUSE GROWER origin---can talk again about doing diagnostic laparoscopy with appendectomy -Thank you for this consult; We will continue to follow Discussed Condition With Dr. Jaswant PIERRE Miss Hawthornekemi Attending Statement patient seen at bedside low grade fever, abdominal pain questionable CTa/p possible appendicitis will recheck labs in am abdominal exams if negative w/u consider obgyn consult for further eval thank you for consult Attestation The exam, history, and the medical decision-making described in the above note were completed with the assistance of the mid-level provider. I reviewed and agree with the findings presented. I attest that I had a [id number] encounter with the patient on the same day, and personally performed and documented my assessment and findings in the medical record. Paris Thomas/Client Service Coordinator ARNP July 03, 2017 09:08 Chino Michaud MD July 08, 2017 08:06
[2017-07-03 11:39] VITALS: BP 120/58; PULSE 72; RESP 18; TEMP 98.6; O2SAT 100
--- NOTE | 2017-07-03 14:07 | HHI.HP ---
[facility] No Primary Care Physician Admission Diagnosis Abdominal pain, R/O appendicitis Diagnoses: (1) Abdominal pain Chief Complaint: Diarrhea, fatigue, abdominal pain Travel History International Travel<30 Days: No Contact w/Intl Traveler <30 Da: No Traveled to Known Affected Are: No History of Present Illness Written by Curry Blair, acting as scribe for Dr. Monae on 07/03/17 at 14: 05. 21-year-old female with history of ovarian cyst who presented the hospital because of abdominal pain, diarrhea, fatigue. Patient states that she was in her normal state of health until 3 days ago after she had a protein shake, protein meal that included hard boiled eggs from [employer]. She then started developing some loose stools and diarrhea. That lasted for approximately a day and then the next day she had overwhelming fatigue, nausea and started developing lower abdominal pain. Patient presented to the emergency department for evaluation and had workup done. Patient's vital signs were stable, laboratory studies do not indicate any acute abnormality. CT scan did indicate findings that could indicate borderline appendix with out any evidence of appendicitis. Because of that reason the ER physician recommended observation the hospital with surgical consultation. Patient states that she is still experiencing some loose stools which her last episode was last night at 11 PM. She still having some mild lower abdominal pain. Patient does have history of ovarian cyst and believes that she might be getting ready to start her menstrual cycle. Patient does have a strong family history of endometriosis. Patient states that she has very painful menses every month where she has to be on Naprosyn, heating pad and cannot leave the house while she is on her period. Review of Systems Gastrointestinal: COMPLAINS OF: Abdominal pain Except as stated in HPI: all other systems reviewed are Neg Past Family Social History Past Medical History History of ovarian cyst Past Surgical History Tonsillectomy Reported Medications Reported Meds & Active Scripts Active Flagyl (Metronidazole) 500 Mg Tab 500 Mg PO TID 7 Days Reported Naproxen 250 Mg Tab 250 Mg PO BID PRN Allergies: Coded Allergies: amoxicillin (Verified Allergy, Severe, HIVES, 07/02/17) Family History Family history reviewed and noncontributory for any heart disease, lung disease , kidney disease, cancer, seizure, stroke Social History Patient is a student at [employer], denies any tobacco or illicit drugs. Does drink alcohol occasionally Physical Exam Vital Signs Vital Signs Date Time Temp Pulse Resp B/P (MAP) Pulse Ox O2 Delivery O2 Flow Rate FiO2 07/03/17 11:39 98.6 72 18 120/58 (78) 100 07/03/17 07:00 99.9 98 18 126/73 (90) 97 07/03/17 00:47 98.0 93 22 121/73 (89) 100 07/03/17 00:38 98.2 90 20 140/67 (91) 98 07/02/17 21:53 106 20 136/66 (89) 100 07/02/17 21:42 20 07/02/17 20:04 99.0 123 18 119/62 (81) 97 Physical Exam GENERAL: Well-developed, well-nourished, in no acute distress. alert and orientated HEENT: Head is normocephalic without any lesions or masses noted. Facial features are symmetric. Eyes: Pupils equal round reactive to light. Extraocular muscles are intact. Conjunctivae were clear. Oropharyngeal: Pharynx without any erythema edema. Tongue is midline without deviation. Buccal mucosa is moist without any masses or lesions NECK: Supple without any masses. Trachea midline no deviation. No JVD, no bruits are appreciated CARDIAC: Regular rhythm, regular rate. S1/S2 are heard. No murmurs gallops or rubs. LUNGS: Clear to auscultation bilaterally. No wheeze, rhonchi or rales. No use of accessory muscles on inspiration or expiration. ABDOMEN: Soft, mild tenderness noted in bilateral lower quadrant. Nondistended. Bowel sounds heard in all 4 quadrants. No organomegaly or masses. Negative rebound, negative guarding EXTREMITIES: No edema, pulses are equal bilaterally. No cyanosis or clubbing NEUROLOGY: Mood and affect appear appropriate. Cranial nerves II through XII grossly intact. Muscle strength 5/5 in upper and lower extremities bilaterally. Deep tendon reflexes are 2+ in upper and lower extremities bilaterally. Laboratory Laboratory Tests Test 07/02/17 20:20 07/02/17 21:00 07/02/17 22:25 07/03/17 08:50 White Blood Count 10.0 6.8 Red Blood Count 4.76 4.53 Hemoglobin 12.9 12.7 Hematocrit 39.8 38.1 Mean Corpuscular Volume 83.8 84.0 Mean Corpuscular Hemoglobin 27.1 28.0 Mean Corpuscular Hemoglobin Concent 32.3 33.3 Red Cell Distribution Width 13.5 13.8 Platelet Count 251 245 Mean Platelet Volume 7.7 7.8 Neutrophils (%) (Auto) 86.4 80.3 Lymphocytes (%) (Auto) 8.4 10.3 Monocytes (%) (Auto) 3.9 9.2 Eosinophils (%) (Auto) 0.0 0.1 Basophils (%) (Auto) 1.3 0.1 Neutrophils # (Auto) 8.7 5.5 Lymphocytes # (Auto) 0.8 0.7 Monocytes # (Auto) 0.4 0.6 Eosinophils # (Auto) 0.0 0.0 Basophils # (Auto) 0.1 0.0 CBC Comment DIFF FINAL DIFF FINAL Differential Comment Blood Urea Nitrogen 6 Creatinine 0.78 Random Glucose 111 Total Protein 7.7 Albumin 3.5 Calcium Level 8.5 Alkaline Phosphatase 81 Aspartate Amino Transf (AST/SGOT) 62 Alanine Aminotransferase (ALT/SGPT) 65 Total Bilirubin 0.4 Sodium Level 136 Potassium Level 4.2 Chloride Level 107 Carbon Dioxide Level 22.4 Anion Gap 7 Estimat Glomerular Filtration Rate 113 Urine Color YELLOW Urine Turbidity CLEAR Urine pH 5.5 Urine Specific [place] 1.025 Urine Protein NEG Urine Glucose (UA) NEG Urine Ketones TRACE Urine Occult Blood NEG Urine Nitrite NEG Urine Bilirubin NEG Urine Urobilinogen 0.2 Urine Leukocyte Esterase NEG Urine RBC 0-3 Urine WBC 3-5 Urine Squamous Epithelial Cells > 8 Urine Uric Acid Crystals . Urine Tyrosine Crystals . Urine Bacteria RARE Urine Mucus MANY Microscopic Urinalysis Comment CULT NOT INDICATED Clue Cells (Wet Prep) NONE SEEN Vaginal Trichomonas (Wet Prep) NONE SEEN Vaginal Yeast (Wet Prep) NONE SEEN Chlamydia trachomatis DNA (PCR) NOT DETECTED Neisseria gonorrhoeae DNA (PCR) NOT DETECTED Date/Time Source Procedure Growth Status 07/02/17 20:20 Nasal Washing Influenza Types A,B Antigen (AMILCAR) - Final NEGATIVE FOR FLU A AND B ANTIGEN.... Complete Result Diagram: 07/03/17 0850 07/02/172019 Imaging Last Impressions Abdomen/Pelvis CT 07/02/172119 Signed Impressions: CONCLUSION: 1. The appendix has some borderline features on this CT exam without definitiv e evidence for appendicitis. There is air noted throughout the appendix lumen a nd there is no significant periappendiceal inflammatory change. Follow-up exami nation may be performed if there is significant ongoing clinical concern for ap pendicitis. 2. Prominent endometrium likely due to patient's phase of menstrual cycle. 3. Otherwise, no definite acute findings in the abdomen or pelvis. Caprini VTE Risk Assessment Caprini VTE Risk Assessment: No/Low Risk (score <= 1) Caprini Risk Assessment Model Point Value = 1 Point Value = 2 Point Value = 3 Point Value = 5 Age 41-60 Minor surgery BMI > 25 kg/m2 Swollen legs Varicose veins or History of unexplained or recurrent spontaneous Oral contraceptives or hormone replacement Sepsis (< 1 month) Serious lung disease, including pneumonia (< 1 month) Abnormal pulmonary function Acute myocardial infarction Congestive heart failure (< 1 month) History of inflammatory bowel disease Medical patient at bed rest Age 61-74 Arthroscopic surgery Major open surgery (> 45 min) Laparoscopic surgery (> 45 min) Malignancy Confined to bed (> 72 hours) Immobilizing plaster cast Central venous access Age >= 75 History of VTE Family history of VTE Factor V Leiden Prothrombin 36705C Lupus anticoagulant Anticardiolipin antibodies Elevated serum homocysteine Heparin-induced thrombocytopenia Other congenital or acquired thrombophilia Stroke (< 1 month) Elective arthroplasty Hip, pelvis, or leg fracture Acute spinal cord injury (< 1 month) Prophylaxis Regimen Total Risk Factor Score Risk Level Prophylaxis Regimen 0-1 Low Early ambulation 2 Moderate Order ONE of the following: *Sequential Compression Device (SCD) *Heparin 5000 units SQ BID 3-4 Higher Order ONE of the following medications: *Heparin 5000 units SQ TID *Enoxaparin/Lovenox 40 mg SQ daily (WT < 150 kg, CrCl > 30 mL/min) *Enoxaparin/Lovenox 30 mg SQ daily (WT < 150 kg, CrCl > 10-29 mL/min) *Enoxaparin/Lovenox 30 mg SQ BID (WT < 150 kg, CrCl > 30 mL/min) AND/OR *Sequential Compression Device (SCD) 5 or more Highest Order ONE of the following medications: *Heparin 5000 units SQ TID (Preferred with Epidurals) *Enoxaparin/Lovenox 40 mg SQ daily (WT < 150 kg, CrCl > 30 mL/min) *Enoxaparin/Lovenox 30 mg SQ daily (WT < 150 kg, CrCl > 10-29 mL/min) *Enoxaparin/Lovenox 30 mg SQ BID (WT < 150 kg, CrCl > 30 mL/min) AND *Sequential Compression Device (SCD) Assessment and Plan Assessment and Plan 21-year-old female who presented for evaluation of abdominal pain with 3 day history of diarrhea, nausea, fatigue Abdominal pain -Patient presenting symptom is multifactorial with patient having history of painful menses, ovarian cyst, possible gastroenteritis, abnormal CT finding -CT indicated appendix with some borderline features without definite evidence for appendicitis. Prominent endometrium likely due to patient's phase of menstrual cycle. -Additional workup with laboratory studies do not indicate any leukocytosis, patient is afebrile, no exam findings indicative of appendicitis. -General surgery consult has been performed in was indicated by surgery that low threshold that it is appendicitis, Dr. Michaud recommended at least STENO POOL SUPERVISOR recommendations -Dr. Vigil was in the hospital and I discussed with her the patient's presentation, reviewed laboratory studies, reviewed CT scan. She indicated there might be some underlying PID, however laboratory studies were negative. And we reviewed her recent antibiotic regimens which would cover for any PID. We measured the endometrial stripe which appeared to be normal to STENO POOL SUPERVISOR. She indicated there is nothing acute at this time, she could benefit from outpatient evaluation if persistent -Patient is tolerating diet at this time -Continue Naprosyn as needed DVT prevention -Low risk, early ambulation Discharge disposition Discharge home in stable condition Activity: Ad katheryn. Diet: Regular diet Medication per medication reconciliation Follow-up with primary medical doctor in 1 week This note was transcribed by jae Blair. I, Dr. Holger Monae personally performed the history, physical exam, and medical decision making; and confirmed the accuracy of the information in the transcribed note. Authenticated by Dr. Holger Monae on 07/03/17 at 14:05. Code Status Full code Discussed Condition With Patient Problem Qualifiers (1) Abdominal pain: Qualified Codes: R10.30 - Lower abdominal pain, unspecified Curry Blair July 03, 2017 14:07 Holger Monae MD July 03, 2017 14:51
--- NOTE | 2017-07-03 14:45 | HHI.DCPOC ---
Discharge Care Plan Diagnosis: (1) Abdominal pain Goals to Promote Your Health * To prevent worsening of your condition and complications * To maintain your health at the optimal level Directions to Meet Your Goals Take your medications as prescribed Follow your dietary instruction Follow activity as directed Keep your appointments as scheduled Take your immunizations and boosters as scheduled If your symptoms worsen call your PCP, if no PCP go to Urgent Care Center or Emergency Room Smoking is Dangerous to Your Health. Avoid second hand smoke Call the 24-hour hour crisis hotline for domestic abuse at Curry Blair July 03, 2017 14:45
[2017-07-03 15:57] VITALS: BP 147/78; PULSE 88; RESP 18; TEMP 96.9
== END 2017-07-03 17:04 | disposition home or self-care (01) ==
LOC: PHED 19:58 → PHEDA 22:53 → PH3B 07-03 00:47
PROVIDERS: ADMIT Hospitalist; ATTEND Hospitalist
DX: R10.30 Lower abdominal pain, unspecified (principal); R53.1 Weakness; M54.5 Low back pain; J45.909 Unspecified asthma, uncomplicated
CPT/HCPCS: 74177; 80053; 81001; 84703; 85025; 87210; 87491; 87591; 87804; 96360; 96361; 99285; G0378; J7030; Q9967